=== PATIENT | male | born 1995 | race American Indian/Alaskan Native ===

== ENCOUNTER 2016-09-05 15:25 | Emergency (ER) | payer OTHER ==
[2016-09-05 15:33] VITALS: BP 137/89; PULSE 90; RESP 16; TEMP 99.5; O2SAT 98
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
== END 2016-09-05 18:39 | disposition home or self-care (01) ==
LOC: H.ER 15:25
DX: S09.90XA Unspecified injury of head, initial encounter (principal); V43.52XA Car driver injured in collision with other type car in traffic accident, initial encounter; Y92.410 Unspecified street and highway as the place of occurrence of the external cause